=== PATIENT | male | born 1960 | race Caucasian/White ===

== ENCOUNTER 2017-07-14 09:43 | Emergency (ER) | payer OTHER ==
[~2017-07-14] VITALS: Ht 175.3 cm; Wt 77.1 kg
[~2017-07-14 09:43] MED LIST: ALBU.083IS IH; ALBU90OI INH; ALER PO; Ativan1 MG SL; Bactrim Ds Tab1 EACH PO; CARBLEV25 PO; CEPH500 PO; CHLO25 PO; CRUTCH2 USE; CYCL10 PO; Cleocin HCl300 MG PO; DILANTIN; DIPH50 PO; DOXY100 PO; DULO30 PO; ERGO50000 PO; EXTRA STRENGTH500 MG PO; GABA100 PO; GABA300 PO; HYDACE5 PO; HYDCHL25 PO; IBUP400 PO; IBUP600 PO; IBUP800 PO; LEVSOD100 PO; LEVSOD25 PO; LORA1 PO; METO25; MUPI2TO TOP; Multiple Vitam1 EAC1 PO; NAPR500 PO; NICOTINE1 EAC1 TD; Norco 5-325 Ta1 EACH PO; OMEP40CA12 PO; OXYACE5T PO; PANT40 PO; PARO10 PO; PARO20 PO; PHENY100ER PO; POTCHL10ER PO; Percocet 5-3251 EACH PO; Prednisone20 MG PO; QVAR7.3 G1 IH; RANI150 PO; SILD50TA PO; SULTRIDS PO; Synthroid25 MCG PO; TRIA80TC TOP; ULTRA-LIGHT RO1 EACH EXT; VARE1 PO
== END 2017-07-14 12:04 | disposition home or self-care (01) ==
LOC: ER 09:43
DX: S70.11XA Contusion of right thigh, initial encounter (principal); M25.511 Pain in right shoulder; G89.29 Other chronic pain; F17.210 Nicotine dependence, cigarettes, uncomplicated; W10.9XXA Fall (on) (from) unspecified stairs and steps, initial encounter; Z88.2 Allergy status to sulfonamides; Z88.8 Allergy status to other drugs, medicaments and biological substances
CPT/HCPCS: 73030; 73552; 99283

== ENCOUNTER 2020-09-06 20:17 | Emergency (ER) | payer OTHER ==
[~2020-09-06] VITALS: Ht 177.8 cm; Wt 68.0 kg
[2020-09-06 20:48] LABS: BASOPHILS ABSOLUTE AUTO 0.09 K/mm3 (0.00-0.23); BASOPHILS PERCENT AUTO 1 % (0-2); EOSINOPHILS ABSOLUTE AUTO 0.23 K/mm3 (0.00-0.68); EOSINOPHILS PERCENT AUTO 3 % (0-6); Hematocrit 48.6 % (37.0-53.0); IMMATURE GRAN ABSOLUTE AUTO 0.03 K/mm3 (0.00-0.10); IMMATURE GRAN PERCENT AUTO 0 % (0-1); LYMPHOCYTES ABSOLUTE AUTO 3.64 K/mm3 (0.84-5.20); LYMPHOCYTES PERCENT AUTO 41 % (21-46); MONOCYTES ABSOLUTE AUTO 0.67 K/mm3 (0.16-1.47); MONOCYTES PERCENT AUTO 8 % (4-13); Mean Corpuscular HGB 32.3 pg (26.0-34.0); Mean Corpuscular Volume 92 fL (80-100); Mean Platelet Volume 9.3 fL (9.1-12.4); NEUTROPHILS ABSOLUTE AUTO 4.13 K/mm3 (1.96-9.15); NEUTROPHILS PERCENT AUTO 47 % (41-73); Platelet Count 333 K/mm3 (150-400); RDW Coefficient Variation 13.7 % (11.7-14.2); RDW Standard Deviation 47.1 fL (35.1-46.3); Red Blood Cell Count 5.27 M/mm3 (4.30-5.90); White Blood Cell Count 8.79 K/mm3 (4.00-11.30)
== END 2020-09-06 21:48 | disposition left against medical advice (07) ==
LOC: ER 20:17
PROVIDERS: Physician Assistant
DX: R11.2 Nausea with vomiting, unspecified (principal); R19.7 Diarrhea, unspecified; Z53.21 Procedure and treatment not carried out due to patient leaving prior to being seen by health care provider
CPT/HCPCS: 85025

== ENCOUNTER 2024-09-26 13:12 | Inpatient (IN) | payer OTHER ==
[~2024-09-26] VITALS: Ht 175.3 cm; Wt 54.6 kg
[2024-09-26] MEDS ORDERED: MethylPREDNISolone Sod Succ 125 MG Vial IV ONE (13:45)
[2024-09-26] MEDS ORDERED: NS 1,000 ML IV SCH ×2 (13:45→21:55)
[2024-09-26] MEDS ORDERED: Albuterol 2.5 MG/3 ML VIAL INH SCH (13:45)
[2024-09-26 14:21] LABS: PCO2 Arterial 52.3 mmHg (35-45); PO2 Arterial 79.4 mmHg (80-100); pH Blood Arterial 7.36 (7.35-7.45)
[2024-09-26 14:22] LABS: BASOPHILS ABSOLUTE AUTO 0.08 K/mm3 (0.00-0.23); BASOPHILS PERCENT AUTO 1 % (0-2); EOSINOPHILS PERCENT AUTO 0 % (0-6); Hematocrit 43.2 % (37.0-53.0); Hemoglobin 15.8 g/dL (13.5-17.5); IMMATURE GRAN ABSOLUTE AUTO 0.21 K/mm3 (0.00-0.10); IMMATURE GRAN PERCENT AUTO 2 % (0-1); LYMPHOCYTES ABSOLUTE AUTO 0.94 K/mm3 (0.84-5.20); LYMPHOCYTES PERCENT AUTO 9 % (21-46); MONOCYTES ABSOLUTE AUTO 1.75 K/mm3 (0.16-1.47); MONOCYTES PERCENT AUTO 17 % (4-13); Mean Corpuscular HGB 34.3 pg (26.0-34.0); Mean Corpuscular HGB Conc 36.6 g/dL (31.5-36.5); Mean Corpuscular Volume 94 fL (80-100); Mean Platelet Volume 8.8 fL (9.1-12.4); NEUTROPHILS ABSOLUTE AUTO 7.52 K/mm3 (1.96-9.15); NEUTROPHILS PERCENT AUTO 72 % (41-73); Platelet Count 226 K/mm3 (150-400); RDW Coefficient Variation 12.5 % (11.7-14.2); RDW Standard Deviation 43.3 fL (35.1-46.3)
[2024-09-26 14:47] LABS: Albumin, Blood 2.4 g/dL (3.4-5.0); Albumin/Globulin Ratio 0.6 (0.8-1.8); Bilirubin, Total 0.7 mg/dL (0.1-1.0); Bun/Creatinine Ratio 10.6 (12.0-20.0); Calcium, Blood 7.9 mg/dL (8.5-10.1); Creatinine, Blood 0.19 mg/dL (0.60-1.20); Total Protein, Blood 6.4 g/dL (6.4-8.2)
[2024-09-26] MEDS ORDERED: NEURONTIN300 MG PO (14:47)
[2024-09-26] MEDS ORDERED: SYNTHROID25 M12 PO (14:47)
[2024-09-26] MEDS ORDERED: LOSARTAN POTASS25 M2 PO (14:48)
[2024-09-26 16:53] LABS: Adenovirus F 40/41 Not Detected (NOT DETECT); Astrovirus Not Detected (NOT DETECT); Campylobacter Sp Not Detected (NOT DETECT); Cryptosporidium Not Detected (NOT DETECT); Cyclospora Cayetanensis Not Detected (NOT DETECT); E. Coli O157 Not Detected (NOT DETECT); Entamoeba Histolytica Not Detected (NOT DETECT); Enteroaggregative E. coli-EAEC Not Detected (NOT DETECT); Enteropathogenic E. coli-EPEC Not Detected (NOT DETECT); Enterotoxigenic E. coli-ETEC Not Detected (NOT DETECT); Giardia Lamblia Not Detected (NOT DETECT); Norovirus GI/GII Not Detected (NOT DETECT); Plesiomonas Shigelloides Not Detected (NOT DETECT); Rotavirus A Not Detected (NOT DETECT); Salmonella Sp Not Detected (NOT DETECT); Sapovirus Not Detected (NOT DETECT); Shiga Toxin-prod E. coli-STEC Not Detected (NOT DETECT); Shigella/Enteroin E. coli-EIEC Not Detected (NOT DETECT); Vibrio Cholerae Not Detected (NOT DETECT); Vibrio Sp Not Detected (NOT DETECT); Yersinia Enterocolitica Not Detected (NOT DETECT)
[2024-09-26] MEDS ORDERED: MethylPREDNISolone Sod Succ 125 MG Vial IV SCH (20:00)
[2024-09-26] MEDS ORDERED: Potassium Chloride 40 MEQ in NS 250 ML IV ONE (20:10)
[2024-09-26] MEDS ORDERED: Albuterol 2.5 MG/3 ML VIAL INH PRN (20:10)
[2024-09-26] MEDS ORDERED: Azithromycin 500 MG in NS 250 ML IV SCH (21:00)
[2024-09-26] MEDS ORDERED: Gabapentin 300 MG Cap PO SCH (21:00)
[2024-09-26] MEDS ORDERED: Ondansetron HCl 2 MG / ML 2ML Vial IV PRN (21:55)
[2024-09-26 22:00] VITALS: BP 113/78
[2024-09-26] MEDS ORDERED: Ipratropium/Albuterol SulF 2.5-0.5MG/3 ML Amp INH SCH (22:00)
[2024-09-26 22:05] LABS: Source, Urine Voided
[2024-09-26 22:12] LABS: Bilirubin, Urine Neg (Neg); Blood, Urine 2+ (Neg); Glucose Qualitative, Urine Neg (Neg); Ketones, Urine 3+ (Neg); Leukocyte Esterase, Urine 2+ (Neg); Nitrite, Urine Pos (Neg); Protein, Urine 1+ (Neg); Specific Gravity, Urine 1.005 (1.003-1.022); Urobilinogen, Urine 3+ (Normal)
[2024-09-26 22:20] LABS: Appearance, Urine Hazy (Clear); Color, Urine Yellow (P-Yellow)
[2024-09-26 22:21] LABS: Bacteria Many /hpf; Red Blood Cells, Urine 0-2 /hpf (0-2); Squamous Epithelial Cells Few /hpf (Few)
[2024-09-26 23:22] LABS: U Amphetamine Screen Not Detected; U Barbituate Screen Not Detected; U Benzodiazapine Screen Not Detected; U Buprenorphine Screen Not Detected; U Cannabinoids Screen DETECTED; U Cocaine Screen Not Detected; U Methadone Screen Not Detected; U Methamphetamine Screen Not Detected; U Opiates Screen Not Detected; U Oxycodone Screen Not Detected; U Phencyclidine Screen Not Detected
[2024-09-26 23:53] LABS: Bun/Creatinine Ratio 15.9 (12.0-20.0); Creatinine, Blood 0.25 mg/dL (0.60-1.20); Magnesium, Blood 1.8 mg/dL (1.6-2.4); Potassium, Blood 3.9 mmol/L (3.5-5.5); Thyroid Stimulating Hormone 1.05 uIU/mL (0.360-4.800)
[2024-09-27] VITALS (7 sets, daily range): BP systolic 103–132; BP diastolic 60–93
[2024-09-27] MEDS ORDERED: Ipratropium/Albuterol SulF 2.5-0.5MG/3 ML Amp INH SCH (00:04)
[2024-09-27 04:08] LABS: Base Excess Venous 2.5 mmol/L; Bicarbonate Venous 26.1 mmol/L (24.0-30.0); PCO2 Venous 43.1 mmHg (38-42); pH Blood Venous 7.41 (7.34-7.37)
[2024-09-27 04:34] LABS: Hematocrit 43.6 % (37.0-53.0); Hemoglobin 15.8 g/dL (13.5-17.5); Mean Corpuscular HGB Conc 36.2 g/dL (31.5-36.5); Mean Corpuscular Volume 97 fL (80-100); Mean Platelet Volume 9.1 fL (9.1-12.4); Platelet Count 224 K/mm3 (150-400); RDW Coefficient Variation 12.6 % (11.7-14.2); Red Blood Cell Count 4.52 M/mm3 (4.30-5.90); White Blood Cell Count 11.84 K/mm3 (4.00-11.30)
[2024-09-27 04:58] LABS: Albumin, Blood 2.2 g/dL (3.4-5.0); Albumin/Globulin Ratio 0.6 (0.8-1.8); Bilirubin, Total 0.8 mg/dL (0.1-1.0); Bun/Creatinine Ratio 16.9 (12.0-20.0); Calcium, Blood 8.5 mg/dL (8.5-10.1); Creatinine, Blood 0.3 mg/dL (0.60-1.20); Globulin, Blood 3.8 g/dL (2.2-4.0); Magnesium, Blood 1.8 mg/dL (1.6-2.4); Potassium, Blood 4.1 mmol/L (3.5-5.5)
[2024-09-27 05:03] LABS: BAND PERCENT MAN 36 % (0-8); BASOPHILS PERCENT MAN 0 % (0-2); EOSINOPHILS PERCENT MAN 0 % (0-6); LYMPHOCYTES ABSOLUTE MAN 0.23 K/mm3 (0.84-5.20); LYMPHOCYTES PERCENT MAN 2 % (21-46); METAMYELOCYTE ABSOLUTE MAN 0.23 K/mm3 (0.00-0.00); METAMYELOCYTE PERCENT MAN 2 % (0-0); MONOCYTES ABSOLUTE MAN 0.71 K/mm3 (0.16-1.47); MONOCYTES PERCENT MAN 6 % (4-13); NEUTROPHILS ABSOLUTE MAN 10.65 K/mm3 (1.96-9.15); SEG NEUTROPHILS PERCENT MAN 54 % (41-73); TOTAL CELLS COUNTED 100
[2024-09-27] MEDS ORDERED: Levothyroxine Sodium 0.025 MG Tab PO SCH (06:00)
--- NOTE | 2024-09-27 06:44 | NUR ---
SHIFT SUMMARY PT HAS IMPROVED AFTER ADMISSION OVERNIGHT. PT IS A&O X 4 AND BREATHING CURRENTLY AT 10LPM ON HIGHFLOW. NO OTHER SIGNIFICANT CHANGES OVERNIGHT. WILL CONTINUE TO MONITOR UNTIL REPORT PASSED TO DAY SHIFT TEAM.
[2024-09-27] MEDS ORDERED: Losartan Potassium 25 MG Tab PO SCH (09:00)
[2024-09-27] MEDS ORDERED: Enoxaparin 40 MG/0.4 ML SYR SC SCH (09:00)
--- NOTE | 2024-09-27 09:01 | NUR ---
PO meds held as pt is NPO until speech therapist can evaluate the pt this this morning. Pt failed Melissa swallow eval at bedside this morning.
[2024-09-27 10:49] LABS: Adenovirus Not Detected (NOT DETECT); Bordetella pertussis Not Detected (NOT DETECT); Chlamydophila pneumoniae Not Detected (NOT DETECT); Coronavirus 229E Not Detected (NOT DETECT); Coronavirus HKU1 Not Detected (NOT DETECT); Coronavirus NL63 Not Detected (NOT DETECT); Coronavirus OC43 Not Detected (NOT DETECT); Human Metapneumovirus Not Detected (NOT DETECT); Human Rhinovirus/Enterovirus Not Detected (NOT DETECT); Influenza A/2009-H1 Not Detected (NOT DETECT); Influenza A/H1 Not Detected (NOT DETECT); Influenza A/H3 Not Detected (NOT DETECT); Influenza B Not Detected (NOT DETECT); Mycoplasma pneumoniae Not Detected (NOT DETECT); Parainfluenza Virus 1 Not Detected (NOT DETECT); Parainfluenza Virus 2 Not Detected (NOT DETECT); Parainfluenza Virus 3 Not Detected (NOT DETECT); Parainfluenza Virus 4 Not Detected (NOT DETECT); Respiratory Syncytial Virus Not Detected (NOT DETECT); SARS-Cov-2 (COVID-19), BioFire Not Detected (NOT DETECT)
[2024-09-27] MEDS ORDERED: ChlordiazePOXIDE 25 MG Cap PO PRN ×2 (11:15)
[2024-09-27] MEDS ORDERED: Nicotine 21 MG PATCH TOP SCH (11:15)
[2024-09-27] MEDS ORDERED: LORazepam 2 MG/ML 1ML Injection IV PRN ×2 (11:15)
[2024-09-27] MEDS ORDERED: ZINC OXIDE/PETROLATUM, YELLOW 1 APPLIC/71 GM PASTE TOP PRN (11:55)
--- NOTE | 2024-09-27 13:19 | NUR ---
This RN student initiated incentive spirometry with pt at 1319. Pt expressed understanding with Tx and will perform every hour.
--- NOTE | 2024-09-27 13:29 | NUR ---
spo2 89% on 8 l/min O2. Increased to 10 l/min. Occasionaly coughing. Heart rate is 122 bpm, regular rate and rhythm. Spo2 increased to 92 % on 10 l O2 flow.
[2024-09-27] MEDS ORDERED: CefTRIAXone Sodium 1,000 MG in NS 100 ML IV SCH (16:00)
[2024-09-28 04:11] VITALS: BP 99/61
[2024-09-28 04:15] LABS: Hematocrit 37.9 % (37.0-53.0); Hemoglobin 13.5 g/dL (13.5-17.5); Mean Corpuscular HGB 34.7 pg (26.0-34.0); Mean Corpuscular HGB Conc 35.6 g/dL (31.5-36.5); Mean Corpuscular Volume 97 fL (80-100); Mean Platelet Volume 9.5 fL (9.1-12.4); Platelet Count 216 K/mm3 (150-400); RDW Coefficient Variation 12.8 % (11.7-14.2); RDW Standard Deviation 45.3 fL (35.1-46.3); Red Blood Cell Count 3.89 M/mm3 (4.30-5.90); White Blood Cell Count 14.85 K/mm3 (4.00-11.30)
[2024-09-28 04:33] LABS: Bun/Creatinine Ratio 24.1 (12.0-20.0); Calcium, Blood 8.4 mg/dL (8.5-10.1); Creatinine, Blood 0.29 mg/dL (0.60-1.20); Potassium, Blood 3.5 mmol/L (3.5-5.5)
[2024-09-28 04:38] LABS: BAND PERCENT MAN 10 % (0-8); BASOPHILS PERCENT MAN 0 % (0-2); EOSINOPHILS PERCENT MAN 0 % (0-6); LYMPHOCYTES ABSOLUTE MAN 0.29 K/mm3 (0.84-5.20); LYMPHOCYTES PERCENT MAN 2 % (21-46); MONOCYTES ABSOLUTE MAN 0.29 K/mm3 (0.16-1.47); MONOCYTES PERCENT MAN 2 % (4-13); NEUTROPHILS ABSOLUTE MAN 14.25 K/mm3 (1.96-9.15); SEG NEUTROPHILS PERCENT MAN 86 % (41-73); TOTAL CELLS COUNTED 100
--- NOTE | 2024-09-28 04:53 | NUR ---
SHIFT SUMMARY PT REMAINS A&OX4. VSS ON 4L NC. PT TOLERATING BIPAP THROUGHOUT NIGHT REMAINING >92%. PT ENCOURAGED TO USE IS AND DEEP BREATHING. PT CONTINUES TO BE VERY WEAK AND TREMEROUS THROUGHOUT NIGHT. STATES THIS IS BASELINE. NO SIGNS OF WITHDRAWL THROUGHOUT NIGHT. PT HOOKED UP TO MALE PW WITH ADEQUATE KAY COLORED OUTPUT. PT TURNED Q2HR. ONE SCANT BM THROUGHOUT NIGHT. NO FURTHER QUESTIONS OR CONCERNS AT THIS TIME. CALL MIGUEL WITHIN REACH. WILL CONTINUE WITH PLAN OF CARE.
[2024-09-28 07:42] VITALS: BP 132/77
[2024-09-28] MEDS ORDERED: Folic Acid 1 MG TAB PO SCH (09:00)
[2024-09-28] MEDS ORDERED: Multivitamins 1 Tab PO SCH (09:00)
[2024-09-28] MEDS ORDERED: Thiamine HCl 100 MG Tab PO SCH (09:00)
[2024-09-28 11:02] VITALS: BP 109/67
[2024-09-28 13:52] LABS: Acinetobacter baumannii DNA Not Detected copy/mL (NOT DETECT); Adenovirus DNA Not Detected (NOT DETECT); Chlamydia pneumonia Not Detected (NOT DETECT); Enterobacter cloacae DNA Not Detected copy/mL (NOT DETECT); Escherichia coli DNA Not Detected copy/mL (NOT DETECT); Haemophilus influenzae DNA Detected Bin 10^5 copy/mL (NOT DETECT); Human Coronavirus RNA Not Detected (NOT DETECT); Human Metapneumovirus RNA Not Detected (NOT DETECT); Influenza virus A RNA Not Detected (NOT DETECT); Influenza virus B RNA Not Detected (NOT DETECT); Klebsiella aerogenes DNA Not Detected copy/mL (NOT DETECT); Klebsiella oxytoca DNA Not Detected copy/mL (NOT DETECT); Klebsiella pneumoniae DNA Not Detected copy/mL (NOT DETECT); Legionella pneumophila Not Detected (NOT DETECT); Moraxella catarrhalis DNA Not Detected copy/mL (NOT DETECT); Mycoplasma pneumoniae Not Detected (NOT DETECT); Parainfluenza virus RNA Not Detected (NOT DETECT); Proteus sp DNA Not Detected copy/mL (NOT DETECT); Pseudomonas aeruginosa DNA Not Detected copy/mL (NOT DETECT); Rhinovirus+Enterovirus RNA Not Detected (NOT DETECT); Serratia marcescens DNA Not Detected copy/mL (NOT DETECT); Staphylococcus aureus DNA Not Detected copy/mL (NOT DETECT); Streptococcus agalactiae DNA Not Detected copy/mL (NOT DETECT); Streptococcus pneumoniae DNA Not Detected copy/mL (NOT DETECT); Streptococcus pyogenes DNA Not Detected copy/mL (NOT DETECT)
[2024-09-28 13:53] LABS: Respiratory syncytial Vir RNA Not Detected (NOT DETECT)
[2024-09-28] MEDS ORDERED: Loperamide HCl 2 MG Cap PO PRN (14:00)
--- NOTE | 2024-09-28 14:34 | NUR ---
THIS RN TO ASSUME CARE AT [place] [id number]
[2024-09-28 16:15] VITALS: BP 121/75
[2024-09-28 20:26] VITALS: BP 126/75
[2024-09-28 23:37] VITALS: BP 127/82
--- NOTE | 2024-09-29 02:47 | NUR ---
PCU TRANSFER INTO 331. A/O. STATES NEEDS APPROPRIATELY. LIFT PT. TUCKED IN AND REPOSITIONED FOR COMFORT. ICE WATER GIVEN, PT IS A FEEDER. WARM BLANKET GIVEN. NO OTHER NEEDS. MALE PUREWICK CONNECTED TO WALL SUCTION. WILL CONTINUE TO PROVIDE CARE. CALL LT IN REACH.
[2024-09-29 03:57] VITALS: BP 125/77
[2024-09-29 05:54] LABS: BASOPHILS ABSOLUTE AUTO 0.06 K/mm3 (0.00-0.23); BASOPHILS PERCENT AUTO 0 % (0-2); EOSINOPHILS PERCENT AUTO 0 % (0-6); Hematocrit 36.1 % (37.0-53.0); Hemoglobin 12.8 g/dL (13.5-17.5); IMMATURE GRAN ABSOLUTE AUTO 0.29 K/mm3 (0.00-0.10); IMMATURE GRAN PERCENT AUTO 2 % (0-1); LYMPHOCYTES ABSOLUTE AUTO 0.64 K/mm3 (0.84-5.20); LYMPHOCYTES PERCENT AUTO 5 % (21-46); MONOCYTES PERCENT AUTO 4 % (4-13); Mean Corpuscular HGB 34.1 pg (26.0-34.0); Mean Corpuscular HGB Conc 35.5 g/dL (31.5-36.5); Mean Corpuscular Volume 96 fL (80-100); Mean Platelet Volume 9.3 fL (9.1-12.4); NEUTROPHILS ABSOLUTE AUTO 12.02 K/mm3 (1.96-9.15); NEUTROPHILS PERCENT AUTO 89 % (41-73); Platelet Count 209 K/mm3 (150-400); RDW Coefficient Variation 12.5 % (11.7-14.2); RDW Standard Deviation 44.4 fL (35.1-46.3); Red Blood Cell Count 3.75 M/mm3 (4.30-5.90); White Blood Cell Count 13.51 K/mm3 (4.00-11.30)
[2024-09-29 06:19] LABS: Bun/Creatinine Ratio 36.1 (12.0-20.0); Calcium, Blood 8.2 mg/dL (8.5-10.1); Creatinine, Blood 0.28 mg/dL (0.60-1.20); Potassium, Blood 3.7 mmol/L (3.5-5.5)
--- NOTE | 2024-09-29 06:36 | NUR ---
TRANFER NOTE PT A/OX4, ABLE TO MAKE NEEDS KNOWN. ON TELE, SR 60-70S. SPO2 >95% ON 2L NC. MALE PUREWICK IN PLACE AND ATTACHED TO CONTINUE SUCTION W/ YELLOW URINE IN CANNISTER. PT TRASFERRED TO MEDICAL FLOOR WITH ALL BELONGINGS AND CHART, REPORT GIVEN TO RN.
[2024-09-29 07:28] VITALS: BP 141/90
[2024-09-29] MEDS ORDERED: NS 250 ML IV PRN (11:10)
[2024-09-29 14:59] VITALS: BP 117/72
--- NOTE | 2024-09-29 15:46 | NUR ---
SHIFT SUMMARY MR VICTOR IS ABLE TO ANSWER ORIENTATION QUESTIONS APPROPRIATELY. HE HAS POOR SHORT TERM MEMORY AND CAN BE FORGETFUL. ATTEMPTED TO WEAN OFF OXYGEN TODAY. HE WAS ON ROOM AIR FOR A WHILE, BUT SATS WENT DOWN TO 86-88%. HE WAS ABLE TO BE ON 1L NC AT 93% FOR A WHILE, BUT CURRENTLY REQUIRING 2L NC O2 TO KEEP SATS IN THE LOW 90S. TURN COUGH AND DEEP BREATHING ENCOURAGED. MOIST NON PRODUCTIVE COUGH. INCENTIVE SPIROMETER ENCOURAGED, HE DOES IT WHEN STRONGLY ENCOURAGED BUT WITH POOR TECHNIQUE. EDUCATED ON I.S. USE ON EACH OCCASION. VERBAL ORDER FROM DR SIDDIQI TO DISCONTINUE TELEMETRY THIS MORNING. PT ENCOURAGED AND TOLERATING ENSURE SUPPLIMENTS. INCONTINENT OF URINE USING PURE WICK WITH GOOD UOP. NO STOOL OUTPUT TODAY. HE HAS VOICED CONCERNS THAT HE MIGHT HAVE DIARRHEA AND HAS REQUESTED IMODIUM, WAS EDUCATED THAT IMODIUM IS USED AFTER DIARRHEA STOOL, NOT A PREVENTATIVE. BED LOW, CALL LIGHT IN REACH.
--- NOTE | 2024-09-29 16:24 | NUR ---
PALLIATIVE CARE VISIT: MET WITH PT IN HIS ROOM. PT IS PLEASANT, ORIENTED X 4 AND ABLE TO PARTICIPATE IN MEANINGFUL CONVERSATION. DISCUSSED HIS REASON FOR ADMISSION, POSSIBLE COPD DIAGNOSIS AND NOW ON OXYGEN. PT STATES HE IS HOPING TO BE OFF O2 BEFORE HE DISCHARGES HOME. EDUCATED PT ON DANGERS OF SMOKING CIGARETTES WHILE WEARING OXYGEN. PT STATES "I AM THINKING ABOUT QUITING SMOKING". EDUCATED PT ON SMOKING CESSATION AND ENCOURAGED HIM TO LET HOSPITALIST KNOW IF HE WANTS TO BE DISCHARGED WITH NICOTINE PATCHES. PT V/U. PT DENIES PAIN, CONSTIPATION, POOR APPETITE. PT REPORTS MILD SOB. PT STATES HE FEELS HE EATS WELL AT HOME. PT STATES HE DRINKS 1-2 BEERS DAILY. 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 PT STATES "I INJURED MYSELF TOO MANY TIMES JUMPING OUT OF PLANES". 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 PT STATES HE HAS NO PAIN FROM HIS INJURIES. HE USES A WHEELCHAIR FOR MOBILIZATION. PT DENIES BEING [facility]ICE [facility] AND DOES NOT WANT TO BECOME SERVICE CONNECTED BECAUSE HE DOES NOT WANT TO LOSE HIS CURRENT CAREGIVERS WHO HE STATES TAKES GOOD CARE OF HIM. UPDATED PRIMARY RN WITH ABOVE CONVERSATION. NO CURRENT NEEDS IDENTIFIED AT THIS TIME.
[2024-09-29 19:40] VITALS: BP 125/77
[2024-09-29] MEDS ORDERED: PredniSONE 20 MG Tab PO SCH (21:00)
[2024-09-30 05:16] VITALS: BP 136/87
[2024-09-30 05:57] LABS: BASOPHILS ABSOLUTE AUTO 0.08 K/mm3 (0.00-0.23); BASOPHILS PERCENT AUTO 1 % (0-2); EOSINOPHILS PERCENT AUTO 0 % (0-6); Hematocrit 38.7 % (37.0-53.0); Hemoglobin 13.7 g/dL (13.5-17.5); IMMATURE GRAN ABSOLUTE AUTO 0.59 K/mm3 (0.00-0.10); IMMATURE GRAN PERCENT AUTO 5 % (0-1); LYMPHOCYTES ABSOLUTE AUTO 0.92 K/mm3 (0.84-5.20); LYMPHOCYTES PERCENT AUTO 7 % (21-46); MONOCYTES ABSOLUTE AUTO 0.61 K/mm3 (0.16-1.47); MONOCYTES PERCENT AUTO 5 % (4-13); Mean Corpuscular HGB 34.4 pg (26.0-34.0); Mean Corpuscular HGB Conc 35.4 g/dL (31.5-36.5); Mean Corpuscular Volume 97 fL (80-100); NEUTROPHILS ABSOLUTE AUTO 10.94 K/mm3 (1.96-9.15); NEUTROPHILS PERCENT AUTO 83 % (41-73); Platelet Count 215 K/mm3 (150-400); RDW Coefficient Variation 12.5 % (11.7-14.2); RDW Standard Deviation 44.8 fL (35.1-46.3); Red Blood Cell Count 3.98 M/mm3 (4.30-5.90); White Blood Cell Count 13.14 K/mm3 (4.00-11.30)
[2024-09-30 06:41] LABS: Bun/Creatinine Ratio 27.8 (12.0-20.0); Calcium, Blood 8.1 mg/dL (8.5-10.1); Creatinine, Blood 0.4 mg/dL (0.60-1.20); Phosphorus, Blood 1.5 mg/dL (2.5-4.9); Potassium, Blood 3.8 mmol/L (3.5-5.5)
[2024-09-30 07:26] VITALS: BP 127/92
[2024-09-30] MEDS ORDERED: Sodium Phosphate 30 MM in Dextrose 5% 500 ML IV STA (08:20)
--- NOTE | 2024-09-30 09:07 | NUR ---
RN NOTE OXYGEN 1L NC REMOVED AT 0700HRS. CONTINUOUS PULSE OXIMETER REMOVED BY RESP THERAPIST. SPOT OXYGEN CHECKS HIGH 80S TO LOW 90S. PT ENCOURAGED TO COUGH AND DEEP BREATH, REPOSITIONED WITH HOB UPRIGHT AND SATS STAYING IN LOW 90S. MR VICTOR SAID THAT HE DOES NOT WANT TO HAVE OXYGEN AT HOME. HE SAID THAT HE WOULD LIKE TO QUIT SMOKING TOBACCO, BUT THAT HE MIGHT SMOKE SOMETIMES. HE HAD A GOOD APPETITE THIS MORNING AND ATE THE MAJORITY OF HIS BREAKFAST AND HIGH PROTEIN ENSURE SUPPLIMENT. ENCOURAGED TO DO INCENTIVE SPIROMETER BUT VERY POOR TECHNIQUE.
[2024-09-30] MEDS ORDERED: LOPE2C PO (10:35)
[2024-09-30] MEDS ORDERED: PRED20 PO (10:45)
[2024-09-30] MEDS ORDERED: VISBIOME 112.51 EACH PO (10:54)
[2024-09-30] MEDS ORDERED: AMOCLA500 PO (10:56)
[2024-09-30] MEDS ORDERED: ZINC OXIDE57 GM TOP (11:00)
--- NOTE | 2024-09-30 12:02 | NUR ---
RN NOTE MR VICTOR WAS GIVEN WRITTEN AND VERBAL DISCHARGE INSTRUCTIONS. HE VERBALISED UNDERSTANING AND SAID THAT HE WILL CALL HIS FAMILY TO MOBILE PAINT SPECIALIST [facility] B[facility] FOR 1415HRS. NO QUESTIONS OR CONCERNS AT THIS TIME. SEVERAL SPOT PULSE OX CHECKS IN THE 90S. PT DENIES FEELING SOB ON ROOM AIR.
[2024-09-30 13:26] VITALS: BP 132/96
--- NOTE | 2024-09-30 14:23 | NUR ---
1130- THIS RN SPOKE WITH NAVDEEP LAZO, CASE MANAGEMENT AND VERIFIED [facility] [employer] [facility] FOR INSURANCE; THEREFORE PT WAS ELIGIBLE FOR [facility] RIDE.
--- NOTE | 2024-09-30 14:29 | NUR ---
DISCHARGE NOTE MR VICTOR WAS DISCHARGED HOME VIA MEDICAL TRANSPORT AT 1422HRS. PIV AND PUREWICK REMOVED AT 1400HRS. PT LIFTED OVER [facility] WITH FULL ASSISTANCE. PT DENIED ANY NEW QUESTIONS OR CONCERNS PRIOR TO DISCHARGE.
== END 2024-09-30 14:22 | disposition home or self-care (01) | DRG 193 ==
LOC: ER 13:12 → MEDS 19:15 → PCU 19:15 → MEDS 09-29 02:38
PROVIDERS: Emergency Medicine; Family Medicine; Internal Medicine; Nurse Practitioner Acute Care; ADMIT Student in an Organized Health Care Education/Training Program
PROC: 5A09357 Assistance with Respiratory Ventilation, Less than 24 Consecutive Hours, Continuous Positive Airway Pressure (ICD-10-PCS; principal; 2024-09-26)
PROC: 5A0935A Assistance with Respiratory Ventilation, Less than 24 Consecutive Hours, High Flow/Velocity Cannula (ICD-10-PCS; 2024-09-27)
PROC: 4A033R1 Measurement of Arterial Saturation, Peripheral, Percutaneous Approach (ICD-10-PCS; 2024-09-27)
DX: J18.9 Pneumonia, unspecified organism (principal); E43 Unspecified severe protein-calorie malnutrition; J96.01 Acute respiratory failure with hypoxia; J96.02 Acute respiratory failure with hypercapnia; J44.0 Chronic obstructive pulmonary disease with (acute) lower respiratory infection; J44.1 Chronic obstructive pulmonary disease with (acute) exacerbation; E87.1 Hypo-osmolality and hyponatremia; Z68.1 Body mass index [BMI] 19.9 or less, adult; Z66 Do not resuscitate; K57.30 Diverticulosis of large intestine without perforation or abscess without bleeding; K83.8 Other specified diseases of biliary tract; F17.210 Nicotine dependence, cigarettes, uncomplicated; K76.0 Fatty (change of) liver, not elsewhere classified; I10 Essential (primary) hypertension; E87.6 Hypokalemia; F10.20 Alcohol dependence, uncomplicated; E03.9 Hypothyroidism, unspecified; F41.9 Anxiety disorder, unspecified; F32.9 Major depressive disorder, single episode, unspecified; G47.33 Obstructive sleep apnea (adult) (pediatric); G62.9 Polyneuropathy, unspecified; N32.89 Other specified disorders of bladder; B96.3 Hemophilus influenzae [H. influenzae] as the cause of diseases classified elsewhere; Z99.3 Dependence on wheelchair; Z74.01 Bed confinement status; Z79.890 Hormone replacement therapy; Z79.899 Other long term (current) drug therapy; Z88.1 Allergy status to other antibiotic agents; Z88.2 Allergy status to sulfonamides; Z88.8 Allergy status to other drugs, medicaments and biological substances; Z99.81 Dependence on supplemental oxygen
CPT/HCPCS: 0202U; 0528U; 36415; 36600; 71045; 71260; 74177; 80048; 80053; 81001; 82803; 83735; 83880; 84100; 84145; 84443; 84484; 85025; 87070; 87086; 87205; 87507; 92526; 92610; 93005; 93010; 94640; 94644; 94660; 94664; 94760; 94762; 96361; 96374-59; 97110; 97161; 97530; A6590; A9270; J0456; J0696; J1650; J2919; J3480; J7030; J7050; J7060; J7512; Q9967

== ENCOUNTER 2024-12-10 11:29 | Emergency (ER) | payer OTHER ==
[~2024-12-10] VITALS: Ht 177.8 cm; Wt 68.0 kg
[~2024-12-10 11:29] MED LIST changes: +AMOCLA500 PO; +LOPE2C PO; +LOSARTAN POTASS25 M2 PO; +NEURONTIN300 MG PO; +PRED20 PO; +SYNTHROID25 M12 PO; +VISBIOME 112.51 EACH PO; +ZINC OXIDE57 GM TOP
[2024-12-10] MEDS ORDERED: Nystatin 100,000 Unit/GM Ointment 15 GM TOP ONE (11:40)
[2024-12-10 11:59] LABS: BASOPHILS ABSOLUTE AUTO 0.11 K/mm3 (0.00-0.23); BASOPHILS PERCENT AUTO 1 % (0-2); EOSINOPHILS ABSOLUTE AUTO 0.27 K/mm3 (0.00-0.68); EOSINOPHILS PERCENT AUTO 3 % (0-6); Hematocrit 46.7 % (37.0-53.0); Hemoglobin 15.9 g/dL (13.5-17.5); IMMATURE GRAN ABSOLUTE AUTO 0.06 K/mm3 (0.00-0.10); IMMATURE GRAN PERCENT AUTO 1 % (0-1); LYMPHOCYTES ABSOLUTE AUTO 3.78 K/mm3 (0.84-5.20); LYMPHOCYTES PERCENT AUTO 39 % (21-46); MONOCYTES ABSOLUTE AUTO 0.68 K/mm3 (0.16-1.47); MONOCYTES PERCENT AUTO 7 % (4-13); Mean Corpuscular HGB Conc 34.0 g/dL (31.5-36.5); Mean Corpuscular Volume 100 fL (80-100); NEUTROPHILS ABSOLUTE AUTO 4.85 K/mm3 (1.96-9.15); NEUTROPHILS PERCENT AUTO 50 % (41-73); NRBC ABSOLUTE 0.00 K/mm3 (0.00-0.02); NRBC Auto 0.0 /100 WBC (0.0-0.2); Platelet Count 225 K/mm3 (150-400); RDW Coefficient Variation 13.2 % (11.7-14.2); RDW Standard Deviation 49.2 fL (35.1-46.3)
[2024-12-10] MEDS ORDERED: NYSTRIT TOP (12:09)
[2024-12-10 12:27] LABS: Anion Gap 12.0 mmol/L (3-11); Blood Urea Nitrogen 4.0 mg/dL (8-24); CO2, Blood 24.0 mmol/L (21-32); Calcium, Blood 7.6 mg/dL (8.5-10.1); Chloride, Blood 103.0 mmol/L (98-108); Creatinine, Blood 0.42 mg/dL (0.60-1.20); Glucose, Blood 75.0 mg/dL (70-99); Potassium, Blood 4.0 mmol/L (3.5-5.5); Sodium, Blood 135.0 mmol/L (136-145)
[2024-12-10 13:00] VITALS: BP 138/86
== END 2024-12-10 13:06 | disposition home or self-care (01) ==
LOC: ER 11:29
PROVIDERS: Emergency Medicine
DX: L22 Diaper dermatitis (principal); G47.30 Sleep apnea, unspecified; M19.90 Unspecified osteoarthritis, unspecified site; K21.9 Gastro-esophageal reflux disease without esophagitis; F17.210 Nicotine dependence, cigarettes, uncomplicated; Z74.01 Bed confinement status; Z79.899 Other long term (current) drug therapy; Z79.52 Long term (current) use of systemic steroids; Z88.1 Allergy status to other antibiotic agents
CPT/HCPCS: 80048; 85025; 99283; A9270

== ENCOUNTER 2025-01-04 09:59 | Emergency (ER) | payer OTHER ==
[~2025-01-04] VITALS: Ht 177.8 cm; Wt 59.0 kg
[~2025-01-04 09:59] MED LIST changes: +NYSTRIT TOP
[2025-01-04 12:50] VITALS: BP 110/66
== END 2025-01-04 13:37 | disposition home or self-care (01) ==
LOC: ER 09:59
DX: L89.219 Pressure ulcer of right hip, unspecified stage (principal); E03.9 Hypothyroidism, unspecified; M19.90 Unspecified osteoarthritis, unspecified site; I10 Essential (primary) hypertension; F17.210 Nicotine dependence, cigarettes, uncomplicated; Z79.899 Other long term (current) drug therapy; Z88.1 Allergy status to other antibiotic agents
CPT/HCPCS: 99284

== ENCOUNTER 2025-02-22 18:34 | Inpatient (IN) | payer MEDICARE, OTHER ==
[~2025-02-22] VITALS: Ht 172.7 cm; Wt 58.9 kg
[2025-02-22] MEDS ORDERED: Vancomycin HCL 2,000 MG in NS 520 ML IV ONE (18:50)
[2025-02-22] MEDS ORDERED: Piperacillin/Tazobactam Sod 3.375 GM in NS 100 ML IV ONE (18:50)
[2025-02-22] MEDS ORDERED: NS 1,000 ML IV SCH (19:00)
[2025-02-22 19:07] LABS: BASOPHILS ABSOLUTE AUTO 0.03 K/mm3 (0.00-0.23); BASOPHILS PERCENT AUTO 0 % (0-2); EOSINOPHILS ABSOLUTE AUTO 0.04 K/mm3 (0.00-0.68); EOSINOPHILS PERCENT AUTO 0 % (0-6); Hematocrit 31.2 % (37.0-53.0); Hemoglobin 11.5 g/dL (13.5-17.5); IMMATURE GRAN ABSOLUTE AUTO 0.17 K/mm3 (0.00-0.10); IMMATURE GRAN PERCENT AUTO 2 % (0-1); LYMPHOCYTES ABSOLUTE AUTO 1.66 K/mm3 (0.84-5.20); LYMPHOCYTES PERCENT AUTO 16 % (21-46); MONOCYTES ABSOLUTE AUTO 0.77 K/mm3 (0.16-1.47); MONOCYTES PERCENT AUTO 7 % (4-13); Mean Corpuscular HGB Conc 36.9 g/dL (31.5-36.5); Mean Corpuscular Volume 93 fL (80-100); NEUTROPHILS ABSOLUTE AUTO 8.00 K/mm3 (1.96-9.15); NEUTROPHILS PERCENT AUTO 75 % (41-73); NRBC ABSOLUTE 0.03 K/mm3 (0.00-0.02); NRBC Auto 0.3 /100 WBC (0.0-0.2); Platelet Count 137 K/mm3 (150-400); RDW Coefficient Variation 14.0 % (11.7-14.2); RDW Standard Deviation 45.7 fL (35.1-46.3)
[2025-02-22 19:39] LABS: C-REACTIVE PROTEIN, EXT RANGE 12.3 mg/dL (0.000-0.300); Ethanol (Alcohol), Blood, Med 83.0 mg/dL
[2025-02-22 19:45] LABS: Alanine Aminotransfer (ALT/SGP 29.0 U/L (12-78); Albumin, Blood 1.5 g/dL (3.4-5.0); Albumin/Globulin Ratio 0.5 (0.8-1.8); Anion Gap 16.0 mmol/L (3-11); Aspartate Aminotrans (AST/SGOT 51.0 U/L (12-37); Bilirubin, Total 0.7 mg/dL (0.1-1.0); Blood Urea Nitrogen 7.0 mg/dL (8-24); CO2, Blood 29.0 mmol/L (21-32); Calcium, Blood 6.3 mg/dL (8.5-10.1); Chloride, Blood 84.0 mmol/L (98-108); Creatinine, Blood 0.3 mg/dL (0.60-1.20); Globulin, Blood 3.1 g/dL (2.2-4.0); Glucose, Blood 128.0 mg/dL (70-99); Potassium, Blood 1.5 mmol/L (3.5-5.5); Sodium, Blood 127.0 mmol/L (136-145); Total Protein, Blood 4.6 g/dL (6.4-8.2)
[2025-02-22] MEDS ORDERED: NS 1,000 ML IV ONE ×2 (21:23→23:05)
[2025-02-22 22:59] VITALS: BP 90/72
[2025-02-22] MEDS ORDERED: FentaNYL Citrate 50 MCG/ML 2 ML Injection IV PRN (23:00)
[2025-02-22] MEDS ORDERED: FLU VACC TS2025-26(6MOS UP)/PF 45 MCG/0.5 ML SYRINGE IM ONE (23:00)
[2025-02-22] MEDS ORDERED: Ondansetron HCl 2 MG / ML 2ML Vial IV PRN (23:00)
[2025-02-22] MEDS ORDERED: Vancomycin (Pharmacy Consult) IV SCH (23:00)
[2025-02-23] MEDS ORDERED: Piperacillin/Tazobactam Sod 4.5 GM in NS 100 ML IV SCH (00:42)
[2025-02-23] MEDS ORDERED: LORazepam 2 MG/ML 1ML Injection IV PRN (02:30)
[2025-02-23] MEDS ORDERED: HYDROmorphone HCl/Pf 1MG SYR IV PRN (02:30)
--- NOTE | 2025-02-23 07:24 | NUR ---
NEW ADMIT W/HOSPITALIST CONTACT PATIENT ADMITTED ON COMFORT CARE. PATIENT WAS BROUGHT IN BY AMBULANCE AFTER BEING FOUND AT HOME LYING IN URINE AND FECES FOR AN EXTENDED PERIOD OF TIME. PT IS SEVERELY SEPTIC WITH A LARGE UNSTAGEABLE WOUND TO THE RIGHT HIP AND A MANY OTHER SKIN LESIONS AND ISSUES. THE PATIENT IS A/OX3 AND ABLE TO MAKE NEEDS KNOWN. THE PATIENT REPORTED TO THIS NURSE THAT HE LIVES AT HOME ALONE WITH HIS DOG, BERNABE BUT HAS TWO DIFFERENT CAREGIVERS WHO CARE FOR HIM 7 DAYS A WEEK. WHEN QUESTIONED ABOUT WHY HE WAS IN SUCH POOR CONDITION WITH CAREGIVERS, THE PATIENT SAID IT WOULD "BE DIFFERENT THIS TIME"--WHEN HE RETURNS HOME. THE PATIENT WANTS TO RETURN HOME BUT AGREEABLE TO GO ON HOSPICE SERVICES. PLACED CALL TO DR PUENTES TO DISCUSS CURRENT ORDERS AND REQUEST CC MEDS. NEW ORDER TO D/C TELE. ADDED IV DILAUDID FOR PAIN AND IV ATIVAN FOR POTENTIAL ALCOHOL WITHDRAW. LATER DR WAS AT BEDSIDE. DR CONFIRMED HE WANTED TO CONTINUE WITH ORDER FOR IV ABOX. NEW ORDERS OBTAINED FOR WOUND CARE TO RIGHT HIP--ORDERS ENTERED IN JUL. ORDERS PLACED FOR PALLIATIVE CARE AND CARE MANAGEMENT TO ASSIST WITH HOSPICE REQUEST AND ADDRESS CONCERNS FOR RETURNING HOME. PT IS VERY PAINFUL WITH MOVEMENT. INCONT OF BOWEL AND BLADDER. ORIENTED TO ROOM AND CALL LIGHT. PT HAS VERY LIMITED MOBILITY. PT GIVEN BED BATH AND WOUNDS DRESSED. PT ALSO HAS A DEEP TISSUE INJURY TO THE RIGHT GLUTEAL FOLD. PT GETTING NS AT 75MLS AND HOUR. BED ALARM IN PLACE. AND REGULAR ROUNDING COMMPLETED T/O THE NIGHT.
[2025-02-23] MEDS ORDERED: Morphine Sulfate 20 MG/1ML 1 ML Oral Syringe SL PRN (12:15)
--- NOTE | 2025-02-23 12:21 | NUR ---
ROUNDED ON PT THIS AM. HE IS SITTING UP IN BED, ALERT AND ENGAGING IN CONVERSATION. HE REPORTED NO PAIN AT THIS TIME. EXPRESSED UNDERSTAINGING OF COMFORT CARE AND GOING HOME WITH HOSPICE. DISCUSSED CASE WITH [facility]. SHE EXPRESSED THAT HE WAS RECENTLY HAVING ELEVATED PAIN BUT RESPONDED WELL TO MEDICATION. CALL THIS AFTERNOON FROM [facility] REGARDING A PHONE CALL FROM PATIENTS CAREGIVER. WHERE CAREGIVER WAS PRESSURING THE PATIENT TO RECONSIDER HIS DECISION. UPDATED LAWN SERVICE MANAGER ABOUT DETAILS OF THAT CONVERSATION.
--- NOTE | 2025-02-23 15:11 | NUR ---
PATIENT IS REQUESTING AN EXTERNAL CATHETER AT THIS TIME NOW THAT HE HAS NOW VOIDING. WILL APPLY CONDOM CATH.
--- NOTE | 2025-02-23 18:46 | NUR ---
SHIFT SUMMARY: PATIENT ALERT AND ORIENTED, CALLS OUT FOR MOST NEEDS, REMINDED TO USE CALL LIGHT. HE CAN MAKE HIS OWN DECISIONS. HE VOICES THAT HE WISHES TO GO HOME ON HOSPICE AND WISHES TO BE KEEP COMFORTABLE. PATIENT HAD A CAREGIVER CALL AND COME TO THE HOSPITAL TODAY TO TELL HIM THAT HE WAS TO NOT GO ON HOSPICE AND HE WILL GO GET SURGERY EVEN THOUGH THAT IS NOT WHAT THE PATIENT WANTS. SHE ALSO MENTIONED THAT IF HE GOES ON HOSPICE, WHAT WILL HAPPEN TO HIS DOG AND SHE MAY NEED TO GET PUT DOWN IF SHE HAS TO GO TO A LONG-TERM. THIS WAS RELAYED TO JENNIFER AND THE PORTFOLIO DIRECTOR. PATIENT IS RESISTANT TO CARE AND DOESN'T WISH TO BE REPOSITIONED WHEN COMES TIME DUE TO PAIN. MEDICATING PATIENT PRIOR TO REPOSITIONING NEEDED WHEN PAITENT ALLOWS. PATIENT IS USING A CONDOM CATH FOR URINARY OUTPUT, EATING, AND DRINKING. HE IS IN BED, BED ALARM ON, CALL LIGHT WITHIN REACH, NO SIGNS OR SYMPTOMS OF DISTRESS, PLAN OF CARE ONGOING. DENNY FROM [facility] CAME BY AND SAW THE PATIENT TODAY AND THE PLAN IS FOR THE PATIENT TO GO HOME ON HOSPICE.
--- NOTE | 2025-02-24 06:19 | NUR ---
SHIFT SUMMARY; PT A/OX3-4, PLEASANT, AND COOPERATIVE WITH CARE. DRESSING ON R HIP APPEARS CLEAN, DRY, AND INTACT. PT HAS CONDOM CATHETHER WITH URINE OUTPUT OF 650ML OF CLEAR, YELLOW URINE. PT'S PAIN CONTROLLED WITH MEDICATIONS PER EMAR. PT RESISTANT TO BE REPOSITIONED THROUGHOUT THE NIGHT; FLOATED WITH PILLOWS. 1440ML OF PO WATER INTAKE NOTED THROUGHOUT THE NIGHT. BED IN LOW POSITION AND CALL LIGHT WITHIN REACH.
--- NOTE | 2025-02-24 06:51 | NUR ---
RIGHT HIP DRESSING CHANGE DRESSING TO RIGHT HIP BECAME SATURATED WITH PURULENT EXUDATE. REMOVED SOILED DRESSING WITH STERILE GAUZE AND STERILE SALINE. WOUND HAS EXPOSED TENDON AND MUSCLE. PARTIAL WOUND COVERAGE WITH SLOUGH AND ESCAR. APPLIED ALGINATE TO THE WOUND BED AND COVERED WITH EXUDRY. SECURED WITH MEDIPORE TAPE. PT TOLERATED OK, VERY PAINFUL WITH MOVEMENT. PAPER CHUCKS PLACED UNDER PT AND NEW GOWN PLACED. DEEP TISSUE INJURY TO RIGHT GLUTEAL FOLD APPEARS LARGER.
--- NOTE | 2025-02-24 16:23 | NUR ---
SHIFT SUMMARY: PATIENT ALERT, RESTING OFF AND ON THROUGHOUT THE SHIFT. DOESN'T USE CALL LIGHT, BUT WILL START MOANING AND GROANING FROM ROOM. ONCE IN ROOM WILL MAKE NEEDS KNOWN. ISN'T EATING MUCH DESPITE ENCOURAGEMENT, BUT IS DRINKING LOTS OF WATER. STAFF REPOSITIONING HIM EVERY 2HRS TOLERATED BY PATIENT. MEDICATING PATIENT WITH PAIN MEDS BEFORE REPOSITIONING WITH SOME RELIEF WITH MOVEMENT. PATIENT DOES NOT TOLERATE MOVEMENT WELL. HE IS PLEASANT AND OVERALL COOPERATIVE. IN BED, ALERT, CALL LIGHT WITHIN REACH, JUST REPOSTIONED AND BRIEF CHANGED, NO SIGNS OR SYMPTOMS OF DISTRESS, PLAN OF CARE ONGOING.
--- NOTE | 2025-02-25 04:38 | NUR ---
PATIENT ALERT AND ORIENTED, DENIES SHORTNESS OF BREATH, PAIN CONTROLLED PER MEDICATIONS, TURNED FOR COMFFORT EVERY 2 HOURS, CONDOM CATHETER IN PLACE, DRAINING CLEAR YELLOW URINE, COMFORT CARE ORDERS IN PLACE, NONPRODUCTIVE COUGH, TOLERATING WATER, CALL LIGHTIN REACH, BED IN LOW AND LOCKED POSITION. WILL CONTINUE TO MONITOR
--- NOTE | 2025-02-25 16:09 | NUR ---
SHIFT SUMMARY PATIENT IS ABLE TO MAKE NEEDS KNOWN WHEN HE IS ASKED. HOWEVER, A&O HAS WAXED AND WANED THROUGHOUT THE SHIFT 2-3. TITRATING PAIN MEDICATION UP PER EMAR ORDERS TO COVER PAIN. HAS BEEN DRINKING A LOT OF FLUIDS THROUGHOUT SHIFT. CALL LIGHT WITHIN REACH ABLE TO USE WHEN HE NEEDS SOMETHING.
--- NOTE | 2025-02-26 05:13 | NUR ---
SHIFT SUMMARY; PATIENT SLEPT IN LONG INTERVALS, MEDICATED PRN FOR PAIN OFTEN. TAKING WATER WELL STILL. PLEASANT TO WORK WITH DID NOT REPOSITION TOO MUCH D/T PAINFUL HIP.
[2025-02-26] MEDS ORDERED: FENTANYL1 EA10 TOP (11:58)
[2025-02-26] MEDS ORDERED: MORP20L SL (12:01)
[2025-02-26] MEDS ORDERED: MORP15ER PO (12:02)
[2025-02-26] MEDS ORDERED: Ativan1 MG PO (12:04)
--- NOTE | 2025-02-26 14:52 | NUR ---
DISCHARGE PATIENT WAS DISCHARGED TO HOME HOSPICE, AND WAS TRANSPORTED BY MEDICAL TRANSPORT. VISHAL WAS UPDATED ON ARRIVAL TIME OF PATIENT. PURWICK DISCONNECTED AND TAKEN OFF, PAIN MEDS WAS GIVEN TO PATIENT TO MAKE THE PATIENT MORE COMFORTABLE BEFORE HE LEFT. GAVE REPORT TO HOME HOSPICE NURSE, CARMELA AND ARPAN EARLIER IN SHIFT. IV WAS DISCONTINUED. ROOM WENT OVER BY STAFF AND PATIENT, NO DISTRESS NOTED.
--- NOTE | 2025-02-26 15:00 | NUR ---
THIS ACID ADJUSTER HAS REVIEWED AND AGREES WITH ALL NOTES AND ASSESSMENTS BY APRIL MCMANUS.
== END 2025-02-26 14:10 | disposition hospice, home (50) | DRG 539 ==
LOC: ER 18:34 → ERHOLD 22:09 → MEDS 22:09
PROVIDERS: Emergency Medicine; ADMIT Internal Medicine
DX: M86.8X8 Other osteomyelitis, other site (principal); E43 Unspecified severe protein-calorie malnutrition; E87.1 Hypo-osmolality and hyponatremia; R64 Cachexia; E87.20 Acidosis, unspecified; Z68.1 Body mass index [BMI] 19.9 or less, adult; Z66 Do not resuscitate; Z51.5 Encounter for palliative care; L89.219 Pressure ulcer of right hip, unspecified stage; G25.81 Restless legs syndrome; F10.20 Alcohol dependence, uncomplicated; G47.33 Obstructive sleep apnea (adult) (pediatric); L40.9 Psoriasis, unspecified; F41.9 Anxiety disorder, unspecified; F32.A Depression, unspecified; K21.9 Gastro-esophageal reflux disease without esophagitis; E03.9 Hypothyroidism, unspecified; M17.10 Unilateral primary osteoarthritis, unspecified knee; M19.079 Primary osteoarthritis, unspecified ankle and foot; K76.0 Fatty (change of) liver, not elsewhere classified; J44.9 Chronic obstructive pulmonary disease, unspecified; B96.89 Other specified bacterial agents as the cause of diseases classified elsewhere; F17.210 Nicotine dependence, cigarettes, uncomplicated; I10 Essential (primary) hypertension; R54 Age-related physical debility; D69.6 Thrombocytopenia, unspecified; E87.6 Hypokalemia; E87.8 Other disorders of electrolyte and fluid balance, not elsewhere classified; Z74.01 Bed confinement status; Z88.1 Allergy status to other antibiotic agents; Z28.82 Immunization not carried out because of caregiver refusal
CPT/HCPCS: 36415; 72193; 73502; 80053; 80320; 83605; 85025; 85651; 86140; 87040; 93005; 93010; 96365-59; 96366; 96367; 96368; 99285-25; A6590; A9270; J1171; J2543; J3373; J3480; J7030; J7040; J7050; Q9967